=== PATIENT | male | born 1950 | race Caucasian/White ===

== ENCOUNTER 2017-09-10 20:34 | Emergency (ER) | payer SELFPAY ==
[~2017-09-10] VITALS: Ht 165.1 cm; Wt 70.3 kg
--- NOTE | 2017-09-10 20:51 | NUR ---
CAR[facility] LEI AT [facility]
[2017-09-10 20:56] VITALS: BP 165/90
[2017-09-10 21:02] VITALS: BP 165/90
--- NOTE | 2017-09-10 21:40 | NUR ---
DONNIE [facility] ADE AT [facility]
--- NOTE | 2017-09-10 22:25 | NUR ---
PT BIBA. TAKEN TO BED 2
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
[2017-09-10] MEDS ORDERED: KETOROLAC 30 MG/ML VIAL IVP ONE (23:55)
[2017-09-10] MEDS ORDERED: NACL 0.9% 1,000 ML IV ONE (23:55)
[2017-09-10] MEDS ORDERED: INSULIN REGULAR, HUMAN 100 UNIT/ML VIAL IVP ONE (23:55)
--- NOTE | 2017-09-11 01:20 | NUR ---
Patient discharged with v/s stable. Written and verbal after care instructions given and explained. Patient alert, oriented and verbalized understanding of instructions. Ambulatory with steady gait. All questions addressed prior to discharge. ID band removed. Patient advised to follow up with PMD. Rx of NAPROSYN AND PENICILLIN VK given. Patient educated on indication of medication including possible reaction and side effects. Opportunity to ask questions provided and answered. DISCHARGED BY DR COELHO
== END 2017-09-11 01:20 | disposition home or self-care (01) ==
LOC: MED 20:34
DX: S00.83XA Contusion of other part of head, initial encounter (principal); M25.562 Pain in left knee; E11.9 Type 2 diabetes mellitus without complications; Y09 Assault by unspecified means; Y93.89 Activity, other specified; Y92.89 Other specified places as the place of occurrence of the external cause; Y99.8 Other external cause status
CPT/HCPCS: 70486; 73560; 82948; 96361; 96374; 99284; J1815; J1885; J7030